=== PATIENT | female | born 1980 | race Caucasian/White ===

== ENCOUNTER 2019-01-26 11:30 | Day surgery (SDC) | payer MEDICAID ==
[~2019-01-26 11:30] MED LIST: CEFAZOLIN 1 GM/50 ML (PMX) 50 ML IVPB; SOD CHLORIDE 0.9% 1,000 ML IV
[2019-01-26] MEDS ORDERED: DIPHENHYDRAMINE 50 MG INJ IV (14:30)
[2019-01-26] MEDS ORDERED: ONDANSETRON 4 MG INJ IV (14:30)
[2019-01-26] MEDS ORDERED: HYDROmorphONE 1 MG/5 ML IV SYRINGE IV ×3 (14:30)
[2019-01-26] MEDS ORDERED: FENTAnyl 50 MCG/ML VIAL IV ×2 (14:30)
[2019-01-26] MEDS ORDERED: METOCLOPRAMIDE 10 MG INJ IV (14:30)
[2019-01-26] MEDS ORDERED: ALBUTEROL 0.083% (NEB) 2.5 MG/3 ML AMP HHN (14:30)
[2019-01-26] MEDS ORDERED: MEPERIDINE 25 MG INJ IV (14:30)
[2019-01-26] MEDS ORDERED: SUCCINYLCHOLINE CHLORIDE 100 MG/5 ML SYG IV ×2 (14:41→15:40)
[2019-01-26] MEDS ORDERED: LIDOCAINE 2% (SDV) 5 ML INJ (14:41)
[2019-01-26] MEDS ORDERED: FENTAnyl 50 MCG/ML VIAL (14:41)
[2019-01-26] MEDS ORDERED: NEOSTIGMINE 3 MG/3 ML SYRINGE (14:41)
[2019-01-26] MEDS ORDERED: DESFLURANE 15 MIN (14:41)
[2019-01-26] MEDS ORDERED: GLYCOPYRROLATE 0.4 MG INJ (14:41)
[2019-01-26] MEDS: LIDOCAINE 1% (MPF) 30 ML INJ (15:21)
[2019-01-26] MEDS ORDERED: PROPOFOL 20 ML (15:40)
[2019-01-26] MEDS ORDERED: ROCURONIUM 50 MG INJ (15:40)
[2019-01-26] MEDS ORDERED: CEFAZOLIN 1 GM INJ (15:40)
== END 2019-01-26 17:50 | disposition home or self-care (01) ==
LOC: SDS 11:30
DX: N60.21 Fibroadenosis of right breast (principal); N60.11 Diffuse cystic mastopathy of right breast; N60.91 Unspecified benign mammary dysplasia of right breast; I10 Essential (primary) hypertension
CPT/HCPCS: 19120; 84703; 88307